=== PATIENT | female | born 1970 ===

== ENCOUNTER 2021-06-24 09:05 | Day surgery (SDC) | payer OTHER ==
[~2021-06-24] VITALS: Ht 165.1 cm; Wt 68.9 kg
[2021-06-24] MEDS ORDERED: LIDOCAINE 2% 100 MG/5 ML UJET TP ONE (10:52)
[2021-06-24] MEDS ORDERED: fentaNYL citrate 0.05 MG/ML VIAL ONE (10:52)
[2021-06-24] MEDS ORDERED: MIDAZOLAM 5 MG/5 ML VIAL ONE (10:52)
[2021-06-24] MEDS ORDERED: fentaNYL citrate 0.05 MG/ML VIAL IVP ONE (14:35)
[2021-06-24] MEDS ORDERED: MIDAZOLAM 2 MG/2 ML VIAL IVP ONE (14:35)
== END 2021-06-24 12:10 | disposition home or self-care (01) ==
LOC: MDS 09:05 → MMU 09:06 → MDS 12:10
PROVIDERS: ATTEND Internal Medicine Gastroenterology
DX: Z12.11 Encounter for screening for malignant neoplasm of colon (principal); K21.9 Gastro-esophageal reflux disease without esophagitis; I10 Essential (primary) hypertension; R10.12 Left upper quadrant pain; Z88.0 Allergy status to penicillin; Z79.899 Other long term (current) drug therapy; Z20.822 Contact with and (suspected) exposure to COVID-19; Z90.710 Acquired absence of both cervix and uterus
CPT/HCPCS: 43235; 45378; 81025; 87426; J2250; J3010